=== PATIENT | male | born 1945 | race Caucasian/White ===

== ENCOUNTER 2019-01-23 17:07 | Emergency (ER) | payer MEDICARE ==
[2019-01-23] MEDS ORDERED: TENECTEPLASE 50 MG VIAL ONE (17:09)
[2019-01-23] MEDS ORDERED: EPINEPHrine INJ 0.1 MG/ML 10 ML SYG IV ONE (17:20)
[2019-01-23] MEDS ORDERED: SUCCINYLCHOLINE CHLORIDE 200 MG/10 ML VIAL ONE (17:24)
[2019-01-23] MEDS ORDERED: SODIUM CHLORIDE 0.9% 1000ML 1,000 ML IVS ONE (17:27)
--- NOTE | 2019-01-23 17:36 | RAD ---
EXAM DESCRIPTION: Chest,1 View CLINICAL HISTORY: 73 years Male, cp, hypotension COMPARISON: None. TECHNIQUE: Single view chest FINDINGS: Cardiac silhouette and mediastinum are within normal limits. Coarse lung markings but no focal consolidation. No pleural effusions. Mild dextro thoracic scoliosis. Thoracic spondylosis noted. IMPRESSION: No infiltrates Electronically signed by: Gonzalez Snell 01/23/2019 5:34 PM DATABASE PROGRAMMER
[2019-01-23] MEDS ORDERED: CLOPIDOGREL 75 MG TAB PO ONE (17:38)
[2019-01-23] MEDS ORDERED: HEPARIN PREMIX 500 ML ONE (17:38)
[2019-01-23] MEDS ORDERED: DOBUTamine PREMIX 250 ML IVPB ONE (17:39)
[2019-01-23] MEDS ORDERED: HEPARIN SODIUM (PORCINE) 10,000 UNITS/ML VIAL ONE (17:39)
--- NOTE | 2019-01-23 17:42 | ED.PDOC ---
History of Present Illness - General Chief Complaint: Chest Pain/HI Stated Complaint: chest pain Time Seen by Provider: 01/23/19 17:10 Source: patient Exam Limitations: no limitations - History of Present Illness Initial Comments: The patient is 73-year-old male presenting to the emergency room secondary to severe onset chest pain and arm pain. The patient is passing and out of consciousness on the emergency vehicle trip to the emergency room. Blood pressure dropped to barely palpable. Timing/Duration: 1 hour Severity: severe Improving Factors: nothing Worsening Factors: nothing Associated Symptoms: denies symptoms Allergies/Adverse Reactions: Allergies NO KNOWN ALLERGY Allergy (Verified 01/23/19 17:31) Review of Systems - Review of Systems Review of Systems: 01/23/19 17:42 the patient is initially delirious. He is unable to give an adequate review of systems. Family Medical History - Family History Mother Family History: Unknown Living Status: Unknown Physical Exam - Physical Exam General Appearance: Lethargic, Ill Appearing Eye Exam: bilateral normal Ears, Nose, Throat: hearing grossly normal, other - poor dentition Neck: full range of motion, supple Respiratory: lungs clear, normal breath sounds, no respiratory distress, no accessory muscle use Cardiovascular/Chest: normal peripheral pulses, no edema, other - sinus bradycardia. EMS did report several different conduction patterns in transit. Peripheral Pulses: radial,right: 0, radial,left: 0, femoral,right: 1+, femoral,left: 1+, dorsalis pedis,right: 0, dorsalis pedis,left: 0 Gastrointestinal/Abdominal: non tender, soft Rectal Exam: deferred Back Exam: no CVA tenderness, no vertebral tenderness Extremity: non-tender, normal inspection, no pedal edema, other - poor capillary refill initially. Neurologic: systems developer II-XII nml as tested, other - patient is initially drowsy and confused. Skin Exam: diaphoresis, pallor Comments: Vital Signs - 24 hr 01/23/19 17:35 Pulse Rate [ 71 left brachial] Respiratory 12 Rate Blood Pressure 190/100 [right brachial ] initial blood pressure is nondetectable. Initial heart rate is in the 50s. Initial EKG shows ST segment elevation in 2-3 aVF and some mild depression in V1 and V2. Narrow complex at 50 bpm. Repeat EKG after lytics shows that the ST segment changes had normalized. Progress - Progress Progress: 01/23/19 17:45 the patient is a 73-year-old male presenting to the emergency room secondary to an acute ST elevation myocardial infarction with severe decompensation. Unfortunately the patient was unable to give us information to run through her checklist prior to lytics use. Given the patient's extremis, decision was made to give lytic therapy. The patient also did receive 0.1 mg of IV epinephrine for the hypotension. Blood pressure did correct as did the EKG. Patient is still having mild residual discomfort but nothing compared to prior. He is alert and talkative though still a little bit loopy. He is oxygenating well. We are still maintaining some supplemental oxygen however. Blood pressures have come back down to the 90s over 50s. The patient will be careflighted. We will try to obtain some more information as the patient becomes more oriented. as per Dr. Montalvo's request, the patient has been started on a heparin drip and has been given 300 mg of Plavix. Transferring for specialty care. 01/23/19 18:53 critical care time spent on this patient excluding otherwise billable procedures is 45 minutes. - Results/Orders Results/Orders: hest x-ray shows no obvious consolidation. No pneumothorax. No evidence of trauma. No obvious widening of the mediastinum. Laboratory Tests 01/23/19 01/23/19 01/23/19 17:17 17:17 17:17 WBC 9.8 RBC 4.64 L Hgb 15.4 Hct 44.8 MCV 96.5 H MCH 33.2 H MCHC 34.4 RDW 12.5 Plt Count 323 MPV 8.0 Absolute Neuts (auto) 6.80 Absolute Lymphs (auto) 2.00 Absolute Monos (auto) 0.80 Absolute Eos (auto) 0.10 Absolute Basos (auto) 0.10 Neutrophils % 69.4 Lymphocytes % 19.9 L Monocytes % 8.6 Eosinophils % 1.4 Basophils % 0.7 PT 10.4 INR 1.04 PTT (SP) 28.8 D-Dimer, Quantitative 1.03 H* Sodium 136 Potassium 3.7 Chloride 100 L Carbon Dioxide 26 Anion Gap 13.7 BUN 11 Creatinine 0.99 BUN/Creatinine Ratio 11.1 Random Glucose 140 H Serum Osmolality 273.7 L Calcium 8.4 Magnesium 1.7 L Total Bilirubin 1.0 AST 36 ALT 25 Alkaline Phosphatase 40 L Creatine Kinase 47 CK-MB (CK-2) 1.4 Troponin I < 0.02 B-Natriuretic Peptide 23.1 Serum Total Protein 6.4 Albumin 3.0 L Globulin 3.4 Albumin/Globulin Ratio 0.9 L Departure - Departure Clinical Impression: STEMI (ST elevation myocardial infarction) Qualifiers: Involved coronary artery: unspecified coronary artery Qualified Code(s): I21.3 - ST elevation (STEMI) myocardial infarction of unspecified site Disposition: Transfer to Hospital Condition: Serious Departure Forms: ED Discharge - Pt. Copy, Patient Portal Self Enrollment Instructions: DI for Chest Pain Transfer to Outside Facility - Transfer Information Decision to Transfer Date: 01/23/19 Decision to Transfer Time: 17:30 Reason for Transfer: required specialist not available Accepting Provider:: dr montalvo Accepting Facility: [facility]
[2019-01-23 18:04] VITALS: TEMP 96.3
[2019-01-23 18:32] VITALS: O2SAT 99
[2019-01-23 18:36] VITALS: BP 124/73
== END 2019-01-23 18:25 | disposition short-term general hospital (02) ==
LOC: ER 17:07
DX: I21.3 ST elevation (STEMI) myocardial infarction of unspecified site (principal); I95.9 Hypotension, unspecified
CPT/HCPCS: 36415; 71045; 80053; 82550; 82553; 83735; 83880; 84484; 85025; 85379; 85610; 85730; 93005; J1250; J1644; J3101; J7030

== ENCOUNTER 2019-11-07 20:04 | Emergency (ER) | payer MEDICARE ==
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
--- NOTE | 2019-11-07 21:13 | CT ---
EXAM DESCRIPTION: Head CLINICAL HISTORY: 74 years Male fall COMPARISON: None TECHNIQUE: Images were obtained in axial, sagittal, and coronal planes. This exam was performed according to our departmental dose-optimization program which includes use of Automated Exposure Control, adjustment of the mA and/or kV according to patient size and/or use of iterative reconstruction technique. FINDINGS: Ventricular system is moderately enlarged. Moderate prominence of the cortical sulci. Moderate cerebral volume loss. No abnormal areas of increased attenuation seen. No extra-axial fluid collections noted. No evidence for skull fracture. Symmetric aeration mastoid air cells bilaterally. Unremarkable paranasal sinuses. IMPRESSION: No acute intracranial abnormality. No evidence for hemorrhage, mass lesion, or large acute infarction. Moderate cerebral volume loss. Electronically signed by: Tayla Hines MD 11/07/2019 9:12 PM CDT
[2019-11-07] MEDS ORDERED: IPRATROPIUM/ALBUTEROL 3 ML VIAL NEB ONE (21:15)
--- NOTE | 2019-11-07 21:16 | CT ---
PROCEDURE: CT CERVICAL SPINE WITHOUT IV CONTRAST CLINICAL HISTORY: fall TECHNIQUE: Contiguous axial CT images obtained through the cervical spine without IV contrast. Coronal and sagittal reformatted images also provided. This exam was performed according to our departmental dose-optimization program, which includes automated exposure control, adjustment of the mA and/or kV according to patient size and/or use of iterative reconstruction technique. COMPARISON: None available for comparison FINDINGS: Vertebra: Grade 1 anterolisthesis of C2 on C3 and grade 1 retrolisthesis of C5 on C6. No acute fracture or subluxation. Disc spaces: Moderate multilevel degenerative changes manifested by moderate disc degeneration, endplate changes, prominent concentric disc osteophytes and moderate facet arthropathy. The central thecal sac is mildly to moderately narrowed at multiple levels, most pronounced at C5-C6. Prevertebral soft tissues: Unremarkable Lung apices: Clear IMPRESSION: No acute injury. Electronically signed by: Jeremy Robb MD 11/07/2019 9:14 PM CDT
[2019-11-08] MEDS ORDERED: TETANUS,DIPHTHERIA,PERTUSSIS 1 EA SYG IM ONE (01:18)
--- NOTE | 2019-11-08 02:13 | ED.PDOC ---
History of Present Illness - General Source: patient, EMS Exam Limitations: intoxication - History of Present Illness Initial Comments: 74 yo male with hx of etoh use comes in after two falls today. Patient states he was walking when he stumbled and fell. Was reported loc. no seizure like activity, no loss of urine or bowel. Witness states he slipped backwards. Patient drinking today. denies cp, shortness of breath. smokes daily, has chronic cough. Occurred: just prior to arrival Injuries/Pain Location: upper extremity Reason for Fall: lost balance Loss of Consciousness: brief (seconds) Associated Symptoms (Fall): denies symptoms <Imelda Mike - Last Filed: 11/08/19 07:02> <Sachin Agudelo - Last Filed: 11/08/19 07:32> - General Chief Complaint: Trauma Stated Complaint: fell hit head has been drinking Time Seen by Provider: 11/07/19 20:12 - History of Present Illness Allergies/Adverse Reactions: Allergies NO KNOWN ALLERGY Allergy (Verified 01/23/19 17:31) Review of Systems - Review of Systems Constitutional: Denies: chills, fever EENTM: Denies: blurred vision, ear pain, ear discharge, mouth pain Respiratory: States: cough - chronic.. Denies: short of breath Cardiology: Denies: chest pain, syncope Gastrointestinal/Abdominal: Denies: abdominal pain, nausea, vomiting Genitourinary: Denies: dysuria, frequency Musculoskeletal: Denies: back pain, joint pain, joint swelling, neck pain Neurological: Denies: headache, numbness, paresthesia, tingling, tremors, weakness Endocrine: Denies: unexplained weight gain, unexplained weight loss Hematologic/Lymphatic: Denies: easy bleeding, easy bruising Unable to Obtain Due To: condition <Imelda Mike - Last Filed: 11/08/19 07:02> Past Medical History (General) - Patient Medical History Hx Seizures: No Hx Stroke: No Hx Dementia: No Hx Asthma: No Hx of COPD: Yes Hx Cardiac Disorders: Yes - HX NE c resusitation Hx Congestive Heart Failure: No Hx Pacemaker: No Hx Hypertension: No Hx Thyroid Disease: No Hx Diabetes: No Hx Gastroesophageal Reflux: No Hx Renal Disease: No Hx Cancer: No Hx of HIV: No Hx Hepatitis C: No Hx MRSA: No Surgical History: tonsillectomy - Vaccination History Hx Tetanus, Diphtheria Vaccination: No Hx Influenza Vaccination: Yes Hx Pneumococcal Vaccination: Yes - Social History Hx Alcohol Use: Yes - daily <Imelda Mike - Last Filed: 11/08/19 07:02> Physical Exam - Physical Exam General Appearance: Alert, No apparent distress, Other - disheveled, intoxicated. Head Injury: no evidence of injury, other - no hutchison sign, raccoon eye or deformities. normocephalic, atrumatic. no ecchymosis or lacerations noted. Eye Exam: bilateral normal - EOMI, PERRLA. ENT Exam: hearing grossly normal, no evidence of ENT injury, other - no hemotpmanium, no nasal septal hematoma. Peripheral Pulses: radial,right: 2+, radial,left: 2+, dorsalis pedis,right: 2+, dorsalis pedis,left: 2+, posterior tibialis,right: 2+, posterior tibialis,left: 2+ Cardiovascular/Respiratory: regular rate, rhythm, no M/R/G, normal peripheral pulses, no JVD, no respiratory distress, wheezing Gastrointestinal/Abdominal: normal bowel sounds, non tender, soft, no organomegaly Back Exam: normal inspection, no CVA tenderness, no vertebral tenderness Extremity Exam: normal range of motion, non-tender, other - multiple skin tears. Neurologic: cloth calender II-XII nml as tested, no motor/sensory deficits, alert, other - no pronator drift. Skin Exam: warm/dry - [place] Coma Score Best Eye Response (Lisa): (4) open spontaneously Best Verbal Response ([place]): (5) oriented Best Motor Response ([place]): (6) obeys commands [place] Total: 15 <Imelda Mike - Last Filed: 11/08/19 07:02> Progress - Progress Progress: 11/08/19 02:14 Partial ddx: etoh intoxication, ich, concussion, stroke. Patient resting comfortably. watching tv. calling trying to leave. no focal weakness. patient given tdap, and duoneb for wheezing. EKG shows HR 73, NSR. will start trauma protocol. will get ct head and neck. CXR. Patient asleep. no acute trauma noted on imaging. CT head negative for ich. pending patient sober, aprx 6 hours. Will re-evaluate, clear c-spine at that time. Patient sleeping comfortably. no midline tenderness, full rom. c-spine cleared. patient eating sandwich. attempted to call , but no answer. Attempted to call daughter, no answer. The data reviewed when caring for this patient included: nurse notes, prior records, etc. The history and assessments from nurses notes were reviewed and considered. My assessment and the results of testing completed here in the ED were discussed with the patient. All questions were answered, and they express understanding of my assessment and the plan. They have been instructed to return if their symptoms worsen, and have been asked to follow up with their primary care physician to recheck today's presenting complaint. Return precautions given. VSS. pending ride home. Patient still awaiting ride. VSS, no evidence of etoh withdraw at this time. denies history of etoh withdrawal. Imelda Mike DO #[id number] Laboratory Results WBC 5.8 K/mm3 (4.8-10.8) 11/07/19 20:30 RBC 4.11 M/mm3 (4.70-6.10) L 11/07/19 20:30 Hgb 13.2 gm/dL (14.0-18.0) L 11/07/19 20:30 Hct 38.1 % (42.0-52.0) L 11/07/19 20:30 MCV 92.7 fl (80.0-94.0) 11/07/19 20:30 MCH 32.0 pg (27.0-31.0) H 11/07/19 20:30 MCHC 34.6 g/dL (33.0-37.0) 11/07/19 20:30 RDW 13.5 % (11.5-14.5) 11/07/19 20:30 Plt Count 265 K/mm3 (130-400) 11/07/19 20:30 MPV 6.9 fl (7.40-10.4) L 11/07/19 20:30 Absolute Neuts (auto) 3.30 K/uL (1.8-6.8) 11/07/19 20:30 Absolute Lymphs (auto) 1.70 K/uL (1.0-3.4) 11/07/19 20:30 Absolute Monos (auto) 0.40 K/uL (0.2-0.8) 11/07/19 20:30 Absolute Eos (auto) 0.20 K/uL (0.0-0.4) 11/07/19 20:30 Absolute Basos (auto) 0.10 K/uL (0.0-0.1) 11/07/19 20:30 Neutrophils % 57.2 % (42.0-78.0) 11/07/19 20:30 Lymphocytes % 29.5 % (20.0-50.0) 11/07/19 20:30 Monocytes % 7.3 % (2.0-9.0) 11/07/19 20:30 Eosinophils % 3.8 % (1.0-5.0) 11/07/19 20:30 Basophils % 2.2 % (0.0-2.0) H 11/07/19 20:30 PT 10.9 SECONDS (9.0-10.9) 11/07/19 20:30 INR 1.10 (0.9-1.15) 11/07/19 20:30 PTT (SP) 28.3 SECONDS (21.8-31.6) 11/07/19 20:30 Sodium 124 mmol/L (135-145) L 11/07/19 20:30 Potassium 3.8 mmol/L (3.6-5.0) 11/07/19 20:30 Chloride 91 mmol/L (101-111) L 11/07/19 20:30 Carbon Dioxide 22 mmol/L (21-31) 11/07/19 20:30 Anion Gap 14.8 (12-18) 11/07/19 20:30 BUN 9 mg/dL (7-18) 11/07/19 20:30 Creatinine 0.92 mg/dL (0.6-1.3) 11/07/19 20:30 BUN/Creatinine Ratio 9.8 (10-20) L 11/07/19 20:30 Random Glucose 85 mg/dL (70-105) 11/07/19 20:30 Serum Osmolality 247.6 mOsm/L (275-295) L* 11/07/19 20:30 Calcium 7.9 mg/dL (8.4-10.2) L 11/07/19 20:30 Total Bilirubin 0.7 mg/dL (0.2-1.0) 11/07/19 20:30 AST 36 IU/L (10-42) 11/07/19 20:30 ALT 19 IU/L (10-60) 11/07/19 20:30 Alkaline Phosphatase 56 IU/L (42-121) 11/07/19 20:30 Troponin I < 0.02 ng/mL (0.01-0.05) 11/07/19 20:30 B-Natriuretic Peptide 28.3 pg/ml (0-100) 11/07/19 20:30 Serum Total Protein 7.0 gm/dL (6.4-8.2) 11/07/19 20:30 Albumin 3.3 g/dl (3.2-5.5) 11/07/19 20:30 Globulin 3.7 gm/dL (2.3-3.5) H 11/07/19 20:30 Albumin/Globulin Ratio 0.9 (1.1-1.9) L 11/07/19 20:30 Ethyl Alcohol 216.10 mg/dL (0-79) H* 11/07/19 20:30 - EKG/XRAY/CT CT Ordered: Yes <Imelda Mike - Last Filed: 11/08/19 07:02> Departure <Imelda Mike - Last Filed: 11/08/19 07:02> - Departure Diet: other - Reduce alcohol intake Activity: increase activity as tolerated <Sachin Agudelo - Last Filed: 11/08/19 07:32> - Departure Clinical Impression: Intoxication, Hyponatremia Fall Qualifiers: Encounter type: initial encounter Qualified Code(s): W19.XXXA - Unspecified fall, initial encounter Skin tear of forearm without complication Qualifiers: Encounter type: initial encounter Laterality: unspecified laterality Qualified Code(s): S51.819A - Laceration without foreign body of unspecified forearm, initial encounter Disposition: Discharge to Home or Self Care Condition: Fair Departure Forms: ED Discharge - Pt. Copy, Patient Portal Self Enrollment Instructions: DI for Trauma, Alcohol Use - When Is Drinking a Problem?, Wound Care (DC), Preventing Falls Additional Instructions: The patient is a 74-year-old male presented emergency room secondary to altered mental state due to acute alcohol intoxication with a fall. The patient has been monitored for almost 11 hours. He is completely coherent at this time and able to ambulate without difficulty. The patient was also found to have significant hyponatremia likely related to chronic alcohol intake. He does need to reduce his alcohol intake and he does need to have a sodium rechecked in the coming week with his primary care doctor. The patient is currently waiting for a ride home. ER warnings are given.
[2019-11-08 03:01] VITALS: BP 158/85; TEMP 97.9; O2SAT 94
== END 2019-11-08 08:46 | disposition home or self-care (01) ==
LOC: ER 20:04
DX: F10.129 Alcohol abuse with intoxication, unspecified (principal); E87.1 Hypo-osmolality and hyponatremia; S51.819A Laceration without foreign body of unspecified forearm, initial encounter; R06.2 Wheezing; R55 Syncope and collapse; R29.6 Repeated falls; M47.812 Spondylosis without myelopathy or radiculopathy, cervical region; R05 Cough; J44.9 Chronic obstructive pulmonary disease, unspecified; I25.2 Old myocardial infarction; F17.200 Nicotine dependence, unspecified, uncomplicated; W01.0XXA Fall on same level from slipping, tripping and stumbling without subsequent striking against object, initial encounter; Y93.01 Activity, walking, marching and hiking; Y92.9 Unspecified place or not applicable
CPT/HCPCS: 36415; 70450; 71045; 72125; 80053; 80320; 83880; 84484; 85025; 85610; 85730; 90471; 90715; 93005; 94640; J7620

== ENCOUNTER 2020-01-02 15:32 | Emergency (ER) | payer MEDICARE ==
[2020-01-02] MEDS ORDERED: SODIUM CHLORIDE 0.9% (FLUSH) 10 ML SYG IV PRN (15:54)
[2020-01-02 15:56] VITALS: TEMP 97.1
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
[2020-01-02 18:13] VITALS: BP 150/80; O2SAT 97
== END 2020-01-02 18:13 | disposition home or self-care (01) ==
LOC: ER 15:32
DX: R55 Syncope and collapse (principal); J69.0 Pneumonitis due to inhalation of food and vomit; I25.2 Old myocardial infarction; J44.9 Chronic obstructive pulmonary disease, unspecified